=== PATIENT | female | born 1980 | race Caucasian/White ===

== ENCOUNTER 2024-05-16 20:41 | Emergency (ER) | payer MEDICAID, SELFPAY ==
[2024-05-16 20:42] VITALS: BMI 23.0
[2024-05-16 20:56] VITALS: BP 126/84; PULSE 100; RESP 20; TEMP 36.9; O2SAT 98
--- NOTE | 2024-05-16 21:12 | PD.EDRME ---
Rapid Medical Screening Exam RME Arrival date/time: 05/16/24 20:41 44-year-old female reports with complaints of abdominal discomfort Chief Complaint: General Adult/Misc Complain Time Seen by Provider: 05/16/24 20:49 Vital signs: Vital Signs Temperature 98.4 F 05/16/24 20:56 Pulse Rate 100 05/16/24 20:56 Respiratory Rate 20 05/16/24 20:56 Blood Pressure 126/84 05/16/24 20:56 Pulse Oximetry (%) 98 05/16/24 20:56 Oxygen Delivery Method Room Air 05/16/24 20:56
[2024-05-16 21:31] LABS: Collection Type, Urine Clean Catch
[2024-05-16 21:35] LABS: Basophils # (Auto) 0.1 Thou/mm3 (0.0-0.2); Basophils % (Auto) 1 % (0-2.5); Eosinophils # (Auto) 0.4 Thou/mm3 (0.0-0.5); Eosinophils % (Auto) 4 % (0-10); Hematocrit 33.5 % (36.0-46.0); Immature Granulocytes % (Auto) 0 % (0-0); Immature Granulocytes Auto 0.04 Thou/mm3 (0.00-0.00); Lymphocytes % (Auto) 26 % (10-50); Mean Corpuscular HGB Conc 32.8 g/dl (31.0-37.0); Mean Corpuscular Hemoglobin 30.2 pg (25.0-35.0); Mean Corpuscular Volume 92 fL (80-100); Monocytes # (Auto) 0.9 Thou/mm3 (0.0-0.8); Monocytes % (Auto) 8 % (0-12); Neutrophils % (Auto) 61 % (37-80); Nucleated Red Blood Cell % 0 /100 WBC (0); Platelet Count 331 Thou/mm3 (140-440); RDW Standard Deviation 45.2 fL (36.4-46.3); Red Blood Count 3.64 Miln/mm3 (4.00-5.20); White Blood Count 11.5 Thou/mm3 (3.6-11.0)
[2024-05-16 21:44] LABS: Bacteria,Urine Rare; Bilirubin,Urine Negative (Negative); Blood,Urine Negative (Negative); Clarity,Urine Clear (Clear/Hazy); Color,Urine Lt-Yellow (Lt Yel-Yel); Culture Indicated,Urine Not Indicated; Glucose, Urine Negative (Negative); Ketones,Urine Negative (Negative); Leukocyte Esterase,Urine Negative (Negative); Nitrite,Urine Negative (Negative); Protein,Urine Negative (Neg - Trace); RBC,Urine 1 /hpf (0-3); Specific Gravity,Urine 1.017 (1.001-1.035); Squamous Epithelial Cell,Urine 2 /hpf (0-5); Urobilinogen,Urine Negative mg/dL (0.0-1.0); WBC,Urine < 1 /hpf (0-5)
[2024-05-16 21:49] LABS: Alanine Aminotransferase 14 U/L (10-49); Albumin, Serum 4.4 gm/dL (3.5-5.0); Albumin/Globulin Ratio 1.9 (1.2-2.2); Alkaline Phosphatase 62 U/L (46-116); Anion Gap 7 (7-16); Aspartate Amino Transferase 15 U/L (0-34); BUN/Creatinine Ratio 10 Ratio (12-20); Bilirubin,Total 0.2 mg/dL (0.3-1.2); Blood Urea Nitrogen 10 mg/dL (9-23); Calcium 9.5 mg/dL (8.3-10.6); Calcium (Corrected) 9.5 mg/dL (8.5-10.1); Carbon Dioxide 26.8 mMol/L (20.0-31.0); Chloride 106 mMol/L (98-107); Globulin 2.3 gm/dL (2.3-3.5); Glucose 84 mg/dL (74-106); Osmolality,Calculated 277 (275-295); Potassium 3.7 mMol/L (3.4-5.1); Sodium 140 mMol/L (136-145); Total Protein 6.7 gm/dL (5.7-8.2); eGFR > 60 See Note
[2024-05-16 21:55] LABS: HCG,Qualitative Serum Negative
[2024-05-16 23:02] VITALS: BP 105/71; PULSE 108; RESP 14; O2SAT 98
--- NOTE | 2024-05-16 23:17 | PD.EDADULT ---
ED General RME/HPI General Chief complaint: General Adult/Misc Complain Stated complaint: POSS PREG. FEELS SOMETHING MOVING X3 DAYS Time Seen by Provider: 05/16/24 20:49 Arrival date/time: 05/16/24 20:41 RME / HPI RME / HPI narrative: 05/16/24 20:41 44-year-old female reports with complaints of abdominal discomfort ---- Dr. Pearce?s Main ED Evaluation: 44yo female s/p tubal litigation presents to the ED for a chief complaint of my abdomen keeps moving . Patient states she's noticed her abdomen rolling to both sides and was concerned, so she came in for evaluation. She denies any abdominal pain, N/V, fever, chills or any other associated symptoms. She endorses smoking marijuana. Related Data Allergies Allergy/AdvReac Type Severity Reaction Status Date / Time hydrocodone Allergy Unknown SWELLING Verified 05/16/24 20:45 Penicillins Allergy Unknown SWELLING Verified 05/16/24 20:45 Review of Systems Review of Systems Systems Reviewed: All systems reviewed, normal except as documented Past Medical History Past Medical History CARDIAC: Negative Cardiac Disorders or Congestive Heart Failure RESPIRATORY: Positive Asthma; Negative Chronic Obstructive Pulmonary Disease (COPD) GENITOURINARY: Negative Renal Disease ENDOCRINE: Negative Diabetes Mellitus Type 1 or Diabetes Mellitus Type 2 HEMATOLOGIC: Negative Sickle Cell Disease Surgical History SURGICAL: Positive Tubal Ligation Social History SMOKING STATUS: Current some day smoker ED Exam Narrative Physical exam: GENERAL APPEARANCE: AxOx4, generally well-appearing, no acute distress. HEENT: NC, AT. MMM. EOMI, clear conjunctiva, oropharynx clear. NECK: Supple without lymphadenopathy. No stiffness or restricted ROM. HEART: Normal rate and regular rhythm, normal S1/S1, no m/r/g LUNGS: CTAB, moving air well. No crackles or wheezes are heard. ABDOMEN: Soft, nontender, nondistended with good bowel sounds heard. BACK: No midline C/T/L spine pain or deformity, No CVAT, no obvious deformity. EXTREMITIES: Without cyanosis, clubbing or edema. MUSCULOSKELETAL: FROM of all major joints, no chest tenderness NEUROLOGICAL: Grossly nonfocal. Alert and oriented, moving all 4 extremities. CN not formally tested but appear grossly intact. Observed to ambulate with normal gait. Skin: Warm and dry without any rash. Course Quality Measures none Orders Category Date Time Status CT Screening NOW Care 05/16/24 21:[address] abdomen pelvis w con Stat Exams 05/16/24 21:10 Stop Req CBC Stat Lab 05/16/24 21:18 Completed CMP [Comprehensive Metabolic Panel] Stat Lab 05/16/24 21:18 Completed HCG,Qualitative Serum Stat Lab 05/16/24 21:18 Completed UA, C/S IF [Urinalysis, C/S if Indicated] Stat Lab 05/16/24 21:24 Completed Vital Signs Vital signs: Vital Signs Temperature 98.4 F 05/16/24 20:56 Pulse Rate 100 05/16/24 20:56 Respiratory Rate 20 05/16/24 20:56 Blood Pressure 126/84 05/16/24 20:56 Pulse Oximetry (%) 98 05/16/24 20:56 Oxygen Delivery Method Room Air 05/16/24 20:56 Pulse ox is 98% on room air, which is normal according to my interpretation. MDM Patient data External records reviewed:: [facility] previous records (Per chart review, patient has no previous ED visits or admissions to this facility.) Clinical information provided by:: patient Social determinants that could affect healthcare access:: substance use (smokes marijuana) Patient has the following chronic illnesses:: none How is presenting disease/condition affected by chronic disease/condition?: no chronic disease Evaluation data The following diagnostics were reviewed and interpreted by me:: lab results Lab and/or radiology exams considered but not ordered:: none Interpretation Summary: WBC count is slightly elevated at 11.5, CMP is normal, HCG is negative, UA is unremarkable, according to my interpretation. Medications Medications considered but not ordered:: none Medication administrations:: none Consultations Consultation(s) initiated? (list below): No Diagnosis Differential Diagnosis ED Complaint MDM: , ectopic , ovarian cyst, fornication Most likely diagnosis given after review of the tests above:: abdominal fullness Admission Indicated Admission indicated?: not indicated Explain why admission is indicated or not indicated:: Admission criteria not met. Admission Request Was there a request for admission?: No Disposition Plan Disposition Plan: Discharge Discharge Attestation Discharge Attestation: The patient and all family members were given an opportunity to ask questions and understood the discharge instructions. Discharge instructions specifically effects, indications for sooner follow up or return to the emergency department, and the expected course of current diagnosis. Patient condition: Stable Medical Decision Making Differential Diagnosis Differential Diagnosis: , ectopic , ovarian cyst, fornication Lab Data 05/16/24 21:18 05/16/24 21:18 Labs: Lab Results 05/16/24 05/16/24 Range/Units 21:18 21:24 WBC 11.5 H (3.6-11.0) Thou/mm3 RBC 3.64 L (4.00-5.20) Miln/mm3 Hgb 11.0 L (12.0-16.0) g/dL Hct 33.5 L (36.0-46.0) % MCV 92 (80-100) fL MCH 30.2 (25.0-35.0) pg MCHC 32.8 (31.0-37.0) g/dl RDW Std Deviation 45.2 (36.4-46.3) fL Plt Count 331 (140-440) Thou/mm3 Neut % (Auto) 61 (37-80) % Lymph % (Auto) 26 (10-50) % [place] % (Auto) 8 (0-12) % Eos % (Auto) 4 (0-10) % Baso % (Auto) 1 (0-2.5) % Neut # (Auto) 7.0 (1.8-7.7) Thou/mm3 Lymph # (Auto) 3.0 (1.0-4.8) Thou/mm3 [place] # (Auto) 0.9 H (0.0-0.8) Thou/mm3 Eos # (Auto) 0.4 (0.0-0.5) Thou/mm3 Baso # (Auto) 0.1 (0.0-0.2) Thou/mm3 Immature Gran # (Auto) 0.04 H (0.00-0.00) Thou/mm3 Absolute Nucleated RBC 0.00 (0.00-0.00) Thou/mm3 Immature Gran % 0 (0-0) % Nucleated RBC % 0 (0) /100 WBC Sodium 140 (136-145) mMol/L Potassium 3.7 (3.4-5.1) mMol/L Chloride 106 (98-107) mMol/L Carbon Dioxide 26.8 (20.0-31.0) mMol/L Anion Gap 7 (7-16) BUN 10 (9-23) mg/dL Creatinine 1.0 (0.6-1.3) mg/dL Estim Creat Clear Calc 60.0 L (>60) mL/min eGFR > 60 (60 - ) See Note BUN/Creatinine Ratio 10 L (12-20) Ratio Glucose 84 (74-106) mg/dL Calculated Osmolality 277 (275-295) Calcium 9.5 (8.3-10.6) mg/dL Corrected Calcium 9.5 (8.5-10.1) mg/dL Total Bilirubin 0.2 L (0.3-1.2) mg/dL AST 15 (0-34) U/L ALT 14 (10-49) U/L Alkaline Phosphatase 62 (46-116) U/L Total Protein 6.7 (5.7-8.2) gm/dL Albumin 4.4 (3.5-5.0) gm/dL Globulin 2.3 (2.3-3.5) gm/dL Albumin/Globulin Ratio 1.9 (1.2-2.2) HCG, Qual Negative Ur Collection Type Clean Catch Urine Color Lt-Yellow (Lt Yel-Yel) Urine Clarity Clear (Clear/Hazy) Urine pH 6.0 (5.0-7.0) Ur Specific [place] 1.017 (1.001-1.035) Urine Protein Negative (Neg - Trace) Urine Glucose (UA) Negative (Negative) Urine Ketones Negative (Negative) Urine Blood Negative (Negative) Urine Nitrite Negative (Negative) Urine Bilirubin Negative (Negative) Urine Urobilinogen (Auto) Negative (0.0-1.0) mg/dL Ur Leukocyte Esterase Negative (Negative) Urine RBC 1 (0-3) /hpf Urine WBC < 1 (0-5) /hpf Ur Squamous Epith Cells 2 (0-5) /hpf Urine Bacteria Rare (None) Ur Culture Indicated? Not Indicated Discharge Plan Plan Patient Disposition: HOME (Self Care) Prescriptions/Referrals Referrals: Peter Estrada MD [Primary Care Provider] - In 1 week Problem List Clinical Impression: Abdominal fullness Patient/Caregiver Discharge Instructions Education Materials: ED Symptoms With Uncertain Cause Additional Instructions: Follow-up with your primary care doctor in 2 to 3 days for recheck. You can return to the emergency department sooner symptoms worsen or if you notice any new, concerning issues. Print Language: Marshallese Stand Alone Forms: Symform., Patient Portal Info Letter
== END 2024-05-16 23:37 | disposition home or self-care (01) ==
PROVIDERS: Physician Assistant; Emergency Provider Emergency Medicine; PCP Family Medicine
DX: R10.9 Unspecified abdominal pain (principal)
CPT/HCPCS: 36415; 80053; 81001; 84703; 85025; 99283

== ENCOUNTER 2025-01-07 01:59 | Emergency (ER) | payer MEDICAID, SELFPAY ==
[2025-01-07 02:07] VITALS: BP 114/80; PULSE 90; RESP 19; TEMP 36.4; O2SAT 98; BMI 22.3
[2025-01-07] MEDS: ONDANSETRON ODT 4 MG TABRAP PO (03:11)
[2025-01-07] MEDS: KETOROLAC INJ 60 MG/2 ML VIAL IM (03:12)
[2025-01-07] MEDS: TAMSULOSIN HCL 0.4 MG CAPSULE PO (03:14)
--- NOTE | 2025-01-07 03:57 | EDNOTE_ITS ---
ED Back Injury Pain RME/HPI General Chief Complaint: Abdominal Pain Stated Complaint: LEFT FLANK PAIN Time Seen by Provider: 01/07/25 03:00 Arrival date/time: 01/07/25 01:59 44F with history of kidney stone and UTI diagnosis from [facility] yesterday presents to ED with continued L flank pain and N/V. Patient was discharged with Keflex and nothing else. Patient states she already passed one stone but has to pass another one. Limitations: no limitations Related Data Previous Rx's ?Medication ?Instructions ?Recorded ondansetron 4 mg disintegrating 4 mg PO Q8H PRN nausea and 01/07/25 tablet vomiting #14 tabs tamsulosin 0.4 mg capsule (Flomax) 0.4 mg PO QDAY #14 caps 01/07/25 Allergies Allergy/AdvReac Type Severity Reaction Status Date / Time hydrocodone Allergy Unknown SWELLING Verified 01/07/25 02:00 Penicillins Allergy Unknown SWELLING Verified 01/07/25 02:00 Review of Systems Review of Systems Systems Reviewed: All systems reviewed, normal except as documented Constitutional Constitutional: Reports system reviewed and no additional complaints, except as documented, Denies fever(s) and Denies headache(s) ENT Ears, Nose, Mouth, and Throat: Denies disequilibrium and Denies headache(s) Cardiovascular Cardiovascular: Reports system reviewed and no additional complaints, except as documented, Denies chest pain and Denies dyspnea Respiratory Respiratory: Reports system reviewed and no additional complaints, except as documented, Denies cough and Denies dyspnea Gastrointestinal Gastrointestinal: Reports system reviewed and no additional complaints, except as documented, Reports as per HPI, Denies abdominal pain, Reports nausea and Reports vomiting Genitourinary Genitourinary: Reports as per HPI and Reports flank pain Neurologic Neurologic: Reports system reviewed and no additional complaints, except as documented, Denies confusion, Denies disequilibrium and Denies headache(s) Psychiatric Psychiatric: Denies confusion Past Medical History Past Medical History CARDIAC: Negative Cardiac Disorders or Congestive Heart Failure RESPIRATORY: Positive Asthma; Negative Chronic Obstructive Pulmonary Disease (COPD) GENITOURINARY: Negative Renal Disease ENDOCRINE: Negative Diabetes Mellitus Type 1 or Diabetes Mellitus Type 2 HEMATOLOGIC: Negative Sickle Cell Disease Surgical History SURGICAL: Positive Tubal Ligation Social History SMOKING STATUS: Current every day smoker ED Exam General Limitations: Present no limitations General appearance: Present alert and in distress (pain) Head Head exam: Present atraumatic Neck Neck exam: Present normal inspection, full ROM and trachea midline Chest Chest inspection: Present normal inspection and symmetric chest wall rise Extremities Exam Extremities exam: Present normal inspection and full ROM Back Exam Back exam: Present normal inspection and full ROM Neurological Exam Neurological exam: Present alert, oriented X3 and CN II-XII intact Psychiatric Psychiatric exam: Present normal affect and normal mood Skin Skin exam: Present warm, dry, intact and normal color Course Quality Measures none Orders Category Date Time Status Ketorolac Inj [Toradol Inj] Med 01/07/25 03:00 Discontinued 60 mg IM X1 ONE Ondansetron Odt [Zofran Odt] Med 01/07/25 03:00 Discontinued 4 mg PO X1 ONE Tamsulosin HCl [Flomax] Med 01/07/25 03:00 Discontinued 0.4 mg PO X1 ONE Vital Signs Vital signs: Vital Signs Temperature 97.5 F 01/07/25 02:07 Pulse Rate 90 01/07/25 02:07 Respiratory Rate 19 01/07/25 02:07 Blood Pressure 114/80 01/07/25 02:07 Pulse Oximetry (%) 98 01/07/25 02:07 Oxygen Delivery Method Room Air 01/07/25 02:07 O2 at 98% on RA and WNLs Back Pain / Injury MDM Narrative MDM Narrative:: 44F with history of kidney stone and UTI diagnosis from [facility] yesterday presents to ED with continued L flank pain and N/V. Patient was discharged with Keflex and nothing else. Patient states she already passed one stone but has to pass another one. Physical exam reveals female who appears to be in pain. Patient is afebrile and alert. Meds and pre parole counseling aide given. Patient data External records reviewed:: [facility] previous records Clinical information provided by:: patient Social determinants that could affect healthcare access:: none Patient has the following chronic illnesses:: none How is presenting disease/condition affected by chronic disease/condition?: no chronic disease Evaluation data The following diagnostics were reviewed and interpreted by me:: other (specify) (none) Lab and/or radiology exams considered but not ordered:: not ordered Interpretation Summary: n/a Medications / Prescriptions Medications or Prescriptions considered but not ordered:: ordered Medication administrations:: Medication Administration History Discontinued Medications Ketorolac Tromethamine (Ketorolac Inj 60 Mg/2 Ml Vial) 60 mg IM X1 ONE Stop: 01/07/25 03:01 Last Admin: 01/07/25 03:12 Dose: 60 mg Documented By: CVL Ondansetron HCl (Ondansetron Odt 4 Mg Tabrap) 4 mg PO X1 ONE; Protocol Stop: 01/07/25 03:01 Last Admin: 01/07/25 03:11 Dose: 4 mg Documented By: CVL Tamsulosin HCl (Tamsulosin Hcl 0.4 Mg Capsule) 0.4 mg PO X1 ONE Stop: 01/07/25 03:01 Last Admin: 01/07/25 03:14 Dose: 0.4 mg Documented By: CVL above Consultations Consultation(s) initiated? (list below): No Diagnosis Differential diagnosis back pain/injury: lumbar radiculopathy, sciatica, strain of lumbar region, renal colic, pyelonephritis, thoracic back pain, AAA, discitis and other (kidney stone) Most likely diagnosis given after review of the tests above:: kidney stone Admission Indicated Admission indicated?: not indicated Admission Request Was there a request for admission?: No Disposition Plan Disposition Plan: Discharge Discharge Attestation Discharge Attestation: The patient and all family members were given an opportunity to ask questions and understood the discharge instructions. Discharge instructions specifically effects, indications for sooner follow up or return to the emergency department, and the expected course of current diagnosis. Patient condition: Stable Discharge Plan Plan Patient Disposition: HOME (Self Care) Discharge Disposition comment: Stable Prescriptions/Referrals Prescriptions/Med Rec: New ondansetron 4 mg tablet,disintegrating 4 mg PO Q8H PRN (Reason: nausea and vomiting) Qty: 14 0RF tamsulosin [Flomax] 0.4 mg capsule 0.4 mg PO QDAY Qty: 14 0RF Referrals: No Primary/Family,Physician [Primary Care Provider] - In 1 week Problem List Clinical Impression: Calculus of kidney Patient/Caregiver Discharge Instructions Education Materials: ED Kidney Stone w/ Colic Additional Instructions: Please follow-up with PCP within 24-48 hours and return immediately if symptoms worsen. NSAIDs like ibuprofen tend to work better for this type of pain. Print Language: Malian Stand Alone Forms: Patient Portal Info Letter LUISA/KOKI Supervising Physician LUISA/KOKI Supervising Physician: Dr. Ibrahim
== END 2025-01-07 04:00 | disposition home or self-care (01) ==
PROVIDERS: Emergency Provider Emergency Medicine
DX: N20.0 Calculus of kidney (principal); N39.0 Urinary tract infection, site not specified
CPT/HCPCS: 96372; 99283; J1885; Q0162; A9270

== ENCOUNTER 2025-01-07 19:44 | Emergency (ER) | payer MEDICAID, SELFPAY ==
[2025-01-07 19:45] VITALS: BMI 21.2
[2025-01-07 20:37] VITALS: BP 96/66; PULSE 78; RESP 18; TEMP 36.5; O2SAT 100
--- NOTE | 2025-01-07 20:41 | XR_ITS ---
Examination: CT abdomen and pelvis without contrast. Coronal 3-D reconstructions. Sagittal 2-D reconstructions. Date and time of exam:January 07, 2025, 2101 hrs. Indications: Onset left flank pain today, history kidney stones CTDI: vol (mGy): 5.54 DLP: (mGycm): 270 Technique: Axial images of the abdomen have been obtained, 3 mm slice thickness Intravenous contrast material has not been administered. Low dose protocols were performed. One or more of the following dose reduction techniques were used; automated exposure control, adjustment of the mA and/or KV according to patient size, use of iterative reconstruction technique. Findings: No focal liver or splenic lesions No gallstones. No pancreatic mass. Millimeter left renal calculus. Mild left hydronephrosis, 2 mm distal left ureteral calculus No bowel obstruction No pericecal inflammatory change. Normal appendix No pelvic mass No bladder calculi Impression: Mild left hydronephrosis secondary to 2 mm distal left ureteral calculus
[2025-01-07] MEDS: KETOROLAC INJ 60 MG/2 ML VIAL IM (21:15)
[2025-01-07 22:03] LABS: Collection Type, Urine Voided
[2025-01-07 22:09] LABS: HCG Qualitative,Urine Negative
[2025-01-07 22:16] LABS: Amorphous Crystals,Urine Present (Absent); Bilirubin,Urine Negative (Negative); Blood,Urine Negative (Negative); Clarity,Urine Clear (Clear/Hazy); Color,Urine Yellow (Lt Yel-Yel); Glucose, Urine Negative (Negative); Hyaline Casts,Urine < 1 /hpf (0-1); Ketones,Urine Negative (Negative); Leukocyte Esterase,Urine Positive (Negative); Nitrite,Urine Negative (Negative); PH,Urine 6.0 (5.0-7.0); Protein,Urine Trace (Neg - Trace); RBC,Urine 18 /hpf (0-3); Specific Gravity,Urine 1.031 (1.001-1.035); Squamous Epithelial Cell,Urine 7 /hpf (0-5); Urobilinogen,Urine 2.0 mg/dL (0.0-1.0); WBC,Urine 22 /hpf (0-5)
--- NOTE | 2025-01-07 23:01 | PD.EDABDPN ---
ED Abdominal Pain RME/HPI General Chief Complaint: Abdominal Pain Stated complaint: LEFT FLANK PAIN Time seen by provider: 01/07/25 19:59 Arrival date/time: 01/07/25 19:44 This is a case of 44-year-old female with history of kidney stone came in in the emergency room due to left flank pain radiating to the left side of the abdomen with nausea vomiting today history of present illness started 2 weeks prior to arrival in the emergency room when the patient started to have pain patient went to [facility] where CT scan and blood test were performed and he was diagnosed to have a kidney stone patient was given pain medication and cephalexin and was advised to see a urologist patient was also seen this morning where he was treated as a kidney stone and discharged with Flomax and Zofran after treated with pain patient condition improved and resolved and was discharged home recurrence of the pain tonight this patient decided to sought consult here in the emergency room patient have no urinary symptoms denies any fever chills denies any blood in the urine Source: patient Limitations: no limitations Related Data Previous Rx's ?Medication ?Instructions ?Recorded hydrocodone 5 mg-acetaminophen 325 1 tab PO Q6H PRN pain #8 tabs 01/07/25 mg tablet ondansetron 4 mg disintegrating 4 mg PO Q8H PRN nausea and 01/07/25 tablet vomiting #14 tabs tamsulosin 0.4 mg capsule (Flomax) 0.4 mg PO QDAY #14 caps 01/07/25 Allergies Allergy/AdvReac Type Severity Reaction Status Date / Time hydrocodone Allergy Unknown SWELLING Verified 01/07/25 19:44 Penicillins Allergy Unknown SWELLING Verified 01/07/25 19:44 Review of Systems Review of Systems Systems Reviewed: All systems reviewed, normal except as documented Constitutional Constitutional: Reports system reviewed and no additional complaints, except as documented and Reports as per HPI ENT Ears, Nose, Mouth, and Throat: Denies dysphagia and Denies odynophagia Cardiovascular Cardiovascular: Reports system reviewed and no additional complaints, except as documented and Reports as per HPI Respiratory Respiratory: Reports system reviewed and no additional complaints, except as documented and Reports as per HPI Gastrointestinal Gastrointestinal: Reports system reviewed and no additional complaints, except as documented, Reports as per HPI, Reports abdominal pain, Denies belching, Denies bloating, Denies change in bowel habits, Denies change in stool character, Denies coffee ground emesis, Denies constipation, Denies cramping, Denies diarrhea, Denies dyspepsia, Denies dysphagia, Denies early satiety, Denies excessive flatus, Denies fecal incontinence, Denies heartburn, Denies hematemesis, Denies hematochezia, Denies loose stools, Denies melena, Reports nausea, Denies odynophagia, Denies tenesmus and Reports vomiting Genitourinary Genitourinary: Reports system reviewed and no additional complaints, except as documented and Reports as per HPI Neurologic Neurologic: Reports system reviewed and no additional complaints, except as documented and Reports as per HPI Past Medical History Past Medical History CARDIAC: Negative Cardiac Disorders or Congestive Heart Failure RESPIRATORY: Positive Asthma; Negative Chronic Obstructive Pulmonary Disease (COPD) GENITOURINARY: Negative Renal Disease ENDOCRINE: Negative Diabetes Mellitus Type 1 or Diabetes Mellitus Type 2 HEMATOLOGIC: Negative Sickle Cell Disease Surgical History SURGICAL: Positive Tubal Ligation Social History SMOKING STATUS: Current every day smoker ED Exam General Limitations: Present no limitations General appearance: Present alert, in no apparent distress and other (Patient is awake alert oriented not in distress nontoxic looking well-hydrated well-nourished) Head Head exam: Present atraumatic, normocephalic and normal inspection Eye Eye exam: Present normal appearance, PERRL and EOMI ENT ENT exam: Present normal exam, normal oropharynx and mucous membranes moist Neck Neck exam: Present normal inspection, full ROM and trachea midline; Absent tenderness, meningismus, lymphadenopathy or thyromegaly Chest Chest inspection: Present normal inspection and symmetric chest wall rise; Absent tenderness, rash or abscess Respiratory Respiratory exam: Present normal lung sounds bilaterally; Absent respiratory distress, wheezes, stridor, accessory muscle use or prolonged expiratory phase Cardiovascular Cardiovascular exam: Present regular rate, normal rhythm and normal heart sounds; Absent bradycardia, tachycardia, irregular rhythm, systolic murmur or diastolic murmur Abdominal Exam Abdominal exam: Present soft, tenderness (Mild tenderness on the left flank but no CVA tenderness) and normal bowel sounds; Absent distention, guarding, rebound, rigidity, diminished bowel sounds, hyperactive bowel sounds, hypoactive bowel sounds, incision, psoas sign, obturator sign, Allison's sign, Rovsing's sign or tenderness at McBurney's Point Extremities Exam Extremities exam: Present normal inspection and full ROM Back Exam Back exam: Present normal inspection and full ROM Neurological Exam Neurological exam: Present alert, oriented X3, CN II-XII intact, normal gait and reflexes normal; Absent motor sensory deficit Psychiatric Psychiatric exam: Present normal affect and normal mood Skin Skin exam: Present warm, dry, intact and normal color Course Quality Measures none Orders Category Date Time Status CT abdomen pelvis wo con Stat Exams 01/07/25 20:41 Completed HCG Qualitative,Urine Stat Lab 01/07/25 21:30 Completed Urinalysis Stat Lab 01/07/25 21:30 Completed Ketorolac Inj [Toradol Inj] Med 01/07/25 20:41 Discontinued 60 mg IM X1 ONE Morphine* Inj Med 01/07/25 22:52 Ordered 4 mg IVP Q1H PRN Ondansetron Inj [Zofran Inj] Med 01/07/25 22:52 Discontinued 4 mg IVP X1 ONE Sodium Chloride 0.9% 1000 ml [Ns] 1,000 ml Med 01/07/25 22:52 Active IV 999 mls/hr Tamsulosin HCl [Flomax] Med 01/07/25 22:52 Discontinued 0.4 mg PO X1 ONE Vital Signs Vital signs: Vital Signs Temperature 97.7 F 01/07/25 20:37 Pulse Rate 78 01/07/25 20:37 Respiratory Rate 18 01/07/25 20:37 Blood Pressure 96/66 01/07/25 20:37 Pulse Oximetry (%) 100 01/07/25 20:37 Oxygen Delivery Method Room Air 01/07/25 20:37 Oxygen saturation is 100% in room air Abdominal Pain MDM MDM Narrative MDM Narrative:: This is a case of 44-year-old female with history of kidney stone came in in the emergency room due to left flank pain radiating to the left side of the abdomen with nausea vomiting today history of present illness started 2 weeks prior to arrival in the emergency room when the patient started to have pain patient went to [facility] where CT scan and blood test were performed and he was diagnosed to have a kidney stone patient was given pain medication and cephalexin and was advised to see a urologist patient was also seen this morning where he was treated as a kidney stone and discharged with Flomax and Zofran after treated with pain patient condition improved and resolved and was discharged home recurrence of the pain tonight this patient decided to sought consult here in the emergency room patient have no urinary symptoms denies any fever chills denies any blood in the urine physical examination patient is awake alert oriented not in distress nontoxic looking well-hydrated well-nourished no signs and symptoms of sepsis dehydration or acute abdomen abdominal exam noted to have mild to moderate tenderness in the left flank but no CVA tenderness no guarding no rebound no rigidity negative psoas negative straight or negative Rovsing's negative [place]'s and Allison sign negative CVA tenderness I did not order any blood test since the patient had blood test already this morning patient CT scan showed a mild left hydronephrosis with 2 mm ureteral stone urinalysis actually is normal patient was given initially first Toradol and Zofran which patient condition mildly improved patient still in pain thus I followed with bolus of normal saline morphine Zofran and Flomax I reviewed patient allergy with the patient stated that she is not allergy to [place] and she already took [place] before with no reaction no allergies no rash no swelling thus I decided to prescribe [place] only for 8 tablets for for pain until he see the urologist I also gave the number of the [facility] urologist to see the urologist on Thursday for further evaluation and treatment of ureteral stone and hydronephrosis overall patient condition improved pain was resolved patient will be discharged home in stable condition follow-up with PCP in 2 days for evaluation return precaution to ER was advised Patient was discharged with comfortable condition walking with stable gait. Patient verbalized no further complains explained diagnosis and answered patient question. Patient is comfortable with the proposed management plan including the need to follow up with his/her primary care physician and any specialist if applicable Discussed patient for any urgent condition or worsening sx, He/She needed to go to emergency room immediately or call 911. Patient acknowledge the responsibility to follow up as instructed and to monitor her/his symptoms. For any persistence of the symptoms for more than 3-5 days return precaution advised. Discussed the result of the test and was given printed discharge instruction Patient data External records reviewed:: [facility] previous records Clinical information provided by:: patient Social determinants that could affect healthcare access:: none Patient has the following chronic illnesses:: None How is presenting disease/condition affected by chronic disease/condition?: no chronic disease Evaluation data The following diagnostics were reviewed and interpreted by me:: lab results and radiology exam(s) Lab and/or radiology exams considered but not ordered:: Reviewed Interpretation Summary: Reviewed Medications / Prescriptions Medications or Prescriptions considered but not ordered:: Given Medication administrations:: Medication Administration History Sodium Chloride (Ns) 1,000 mls @ 999 mls/hr IV .Q1H1M ONE Stop: 01/07/25 23:52 Morphine Sulfate (Morphine Sulf Inj 4 Mg/Ml Vial) 4 mg IVP Q1H PRN PRN Reason: PAIN Discontinued Medications Ketorolac Tromethamine (Ketorolac Inj 60 Mg/2 Ml Vial) 60 mg IM X1 ONE Stop: 01/07/25 20:42 Last Admin: 01/07/25 21:15 Dose: 60 mg Documented By: Ondansetron HCl (Ondansetron Inj 2 Mg/Ml Inj 2 Ml) 4 mg IVP X1 ONE; Protocol Stop: 01/07/25 22:53 Tamsulosin HCl (Tamsulosin Hcl 0.4 Mg Capsule) 0.4 mg PO X1 ONE Stop: 01/07/25 22:53 Given Consultations Consultation(s) initiated? (list below): No Diagnosis Differential diagnosis abdominal pain: abdominal pain, acute appendicitis, calculus of kidney, constipation, diverticulitis, gastroenteritis and small bowel obstruction Most likely diagnosis given after review of the tests above:: Ureteral stone hydronephrosis Admission Indicated Admission indicated?: not indicated Explain why admission is indicated or not indicated:: Not indicated Admission Request Was there a request for admission?: No Admission Attestation Admission request attestation: Not indicated Disposition Plan Disposition Plan: Discharge Discharge Attestation Discharge Attestation: The patient and all family members were given an opportunity to ask questions and understood the discharge instructions. Discharge instructions specifically effects, indications for sooner follow up or return to the emergency department, and the expected course of current diagnosis. Patient condition: Stable Discharge Plan Plan Patient Disposition: HOME (Self Care) Patient condition on transfer: Stable Prescriptions/Referrals Prescriptions/Med Rec: New hydrocodone-acetaminophen 5-325 mg tablet 1 tab PO Q6H MDD MAX 4 TABS PER DAY PRN (Reason: pain) Qty: 8 0RF No Action ondansetron 4 mg tablet,disintegrating 4 mg PO Q8H PRN (Reason: nausea and vomiting) Qty: 14 0RF tamsulosin [Flomax] 0.4 mg capsule 0.4 mg PO QDAY Qty: 14 0RF Referrals: No Primary/Family,Physician [Primary Care Provider] - In 1 week Calvin Bolton MD [Physician, Urology] - 01/09/25 Referral Note: For further evaluation and treatment of hydronephrosis and ureteral stone Problem List Clinical Impression: Hydronephrosis, Ureteral stone Patient/Caregiver Discharge Instructions Education Materials: Kidney Stones Your Evaluation, Understanding Hydronephrosis Additional Instructions: Follow-up with your primary care physician in 2 days for reevaluation and to be referred to urologist for further evaluation and treatment of hydronephrosis and ureteral stones recurrence persistent worsening symptoms or any emergent concern call 911 or go to the nearest emergency room continue the medication that was prescribed with momo and provider this morning continue your Flomax and Zofran as needed take your medication as directed increase water intake keep hydrated spatulate Gatorade for hydration is advised Print Language: French Stand Alone Forms: Barbara Award Info., Patient Portal Info Letter PA/[employer]ING [employer] Supervising Physician PA/[employer]ING [employer] Supervising Physician: Dr. Ibrahim
[2025-01-07] MEDS: SODIUM CHLORIDE 0.9% 1000 ML 1,000 ML 999 ML IV (23:02)
[2025-01-07] MEDS: TAMSULOSIN HCL 0.4 MG CAPSULE PO (23:09)
[2025-01-07] MEDS: ONDANSETRON INJ 2 MG/ML INJ 2 ML 4 MG IVP (23:10)
== END 2025-01-07 23:43 | disposition home or self-care (01) ==
PROVIDERS: Nurse Practitioner Family; Emergency Provider Emergency Medicine
DX: N13.2 Hydronephrosis with renal and ureteral calculous obstruction (principal)
CPT/HCPCS: 74176; 81001; 81025; 96372; 96374; 99283; J1885; J2405; J7030; A9270